=== PATIENT | female | born 1955 | race Two or more races ===

== ENCOUNTER 2020-12-26 22:05 | Emergency (ER) | payer MEDICARE ==
[~2020-12-26] VITALS: Ht 160 cm; Wt 57.0 kg
[2020-12-26] MEDS ORDERED: HYDROCODONE/ACETAMINOPHEN 5/325MG TABLET PO ONE (23:30)
[2020-12-27] MEDS ORDERED: LIDOCAINE HCL 1% 20ML VIAL (Pyxis) INJ INFIL ONE (00:15)
[2020-12-27] MEDS ORDERED: FENTANYL CITRATE/PF 50MCG/ML 2ML VIAL IV ONE ×2 (00:15→03:45)
[2020-12-27 03:45] VITALS: BP 129/70
[2020-12-27] MEDS ORDERED: MIDAZOLAM HCL 2 MG/2 ML VIAL IV ONE (03:45)
[2020-12-27] MEDS ORDERED: NAPR-1176 MT (03:52)
[2020-12-27] MEDS ORDERED: HYDR-4001 MT (03:52)
== END 2020-12-27 03:42 | disposition left against medical advice (07) ==
LOC: ER 22:05
DX: S52.501A Unspecified fracture of the lower end of right radius, initial encounter for closed fracture (principal); W18.30XA Fall on same level, unspecified, initial encounter; Y93.89 Activity, other specified; Y92.89 Other specified places as the place of occurrence of the external cause; Y99.8 Other external cause status
CPT/HCPCS: 25605; 73110; 96374; 99284; J3010; J3490